=== PATIENT | male | born 2000 | race Caucasian/White ===

== ENCOUNTER 2021-08-10 14:19 | Emergency (ER) | payer SELFPAY ==
[2021-08-10] MEDS ORDERED: fentaNYL 50 MCG/ML SDV IVPUSH ONE (15:18)
== END 2021-08-10 17:38 | disposition home or self-care (01) ==
LOC: MW.ED 14:19
DX: S52.511A Displaced fracture of right radial styloid process, initial encounter for closed fracture (principal); S52.611A Displaced fracture of right ulna styloid process, initial encounter for closed fracture; V00.131A Fall from skateboard, initial encounter
CPT/HCPCS: 29125; 73110-26-RT; 73110-RT; 99283-25

== ENCOUNTER 2021-08-11 10:03 | Emergency (ER) | payer SELFPAY | END 2021-08-11 11:16 | disposition home or self-care (01) | LOC: MW.ED 10:03 | DX: M79.644 Pain in right finger(s) (principal); Z46.89 Encounter for fitting and adjustment of other specified devices | CPT/HCPCS: 99282; 99283 ==